=== PATIENT | male | born 1960 | race Caucasian/White ===

== ENCOUNTER → 2018-09-30 | Day surgery (SDC) | payer SELFPAY ==
[~2018-09-30] MED LIST: BUPIVACAINE HCL 0.5% INJ 30 ML VIAL INJ ONE; CEFAZOLIN SOD 1 GM/NS 50ML 50 ML IV ONE; DEXAMETHASONE SOD PHOS INJ 4 MG/ML VIAL ONE; FENTANYL CITRATE/PF 100MCG/2 ML INJ ONE; KETOROLAC TROMETHAMINE 30 MG/ML VIAL ONE; LIDOCAINE HCL 2% LOCAL INJ 5 ML SDV VIAL INJ ONE; MIDAZOLAM HCL 2 MG/2 ML VIAL ONE; MUPIROCIN 2% OINT 22 GM TUBE ONE; ONDANSETRON HCL INJ 2MG/ML 2ML 2 MG/ML VIAL ONE; PROPOFOL IV EMULSION 10 MG/ML 20 ML VIAL ONE; SEVOFLURANE INHAL SOLN 250 ML PEN BTL ONE; SIMVASTATIN20 MG PO
--- OUTSIDE RECORDS SUMMARY | 2018-09-30 05:57 | XMS REPORT | Clinical Summary ---
Author Author [facility] Organization [facility] Address Unknown Phone Unavailable Care Team Providers Care Door Repairer Bus Name Role Phone Asked, No Pcp PCP Unavailable Allergies Not on File Medications Not on file Active Problems Not on file Encounters Care Team Description Date Type Specialty Grey Colbert MD Sprain of left acromioclavicular joint, subsequent encounter (Primary Dx); Arthritis of left shoulder region 02/22/2018 Transcribe Physical Therapy Orders Grey Colbert MD Ganglion, left shoulder (Primary Dx); Sprain of left acromioclavicular joint, subsequent encounter; Primary osteoarthritis, left shoulder 01/26/2018 Transcribe Physical Therapy Orders Grey Colbert MD Ganglion, left shoulder (Primary Dx); Sprain of acromioclavicular joint, left, subsequent encounter; Primary osteoarthritis, left shoulder 12/09/2017 Transcribe Physical Therapy Orders after 09/29/2017 Social History Date Tobacco Use Types Packs/Day Years Used Never Assessed Sex Assigned at Date Recorded Not on file Industry Job Start Date Occupation Not on file Not on file Not on file Travel End Travel History Travel Start No recent travel history available. Last Filed Vital Signs Not on file Plan of Treatment Health Maintenance Due Date Last Done Comments COLONOSCOPY SCREENING 2008 SHINGLES VACCINES (#1) 2008 INFLUENZA VACCINE 10/21/2018 Results Not on fileafter 09/29/2017 Insurance Type Payer Benefit Subscriber ID Effective Phone Address Plan / Dates Group PPO BCBS BCBS OUT xxxxxxxxxxxx 2015-P OF STATE resent Advance Directives Patient has advance care planning documents on file. For more information, santosh e contact: Taras Duran [address] [place] [address]
--- OUTSIDE RECORDS SUMMARY | 2018-09-30 05:57 | XMS REPORT ---
[facility] Address Unknown Phone Unavailable Care Team Providers Care Inspector Experimental Assembly Name Role Phone Unavailable Unavailable Payers Payer Name Policy Type Policy Number Effective Date Expiration Date Problems This patient has no known problems. Allergies, Adverse Reactions, Alerts Allergy Name Allergy Type Status Severity Reaction(s) Onset Date Inactive Date Treating Clinician Comments No Known Allergies DA Active U 2010-06-27 00:00:00 Medications This patient has no known medications.
[2018-09-30 10:24] VITALS: BP 132/94
--- NOTE | 2018-09-30 18:08 | Operative Report ---
DATE OF PROCEDURE: SURGEON: Louis Mulligan MD PREOPERATIVE DIAGNOSES: 1. Right carpal tunnel syndrome. 2. Stenosing tenosynovitis of the right thumb and right index finger. POSTOPERATIVE DIAGNOSES: 1. Right carpal tunnel syndrome. 2. Flexor tenosynovitis, right wrist. 3. Stenosing tenosynovitis of the right thumb and right index finger. PROCEDURES PERFORMED: 1. Right open carpal tunnel release. 2. Flexor tenosynovectomy, right wrist. 3. Tenovaginotomy of the right thumb and right index finger. ANESTHESIA: General. HISTORY: The patient is 58 years old, right hand dominant, who presents with stenosing tenosynovitis of the right thumb and right index finger that is recalcitrant to conservative treatment and EMG-proven right carpal tunnel syndrome. Risks, benefits and alternatives of treatment were discussed with the patient. The patient is prepared to undergo the procedure as outlined. DESCRIPTION OF PROCEDURE: The patient was brought to the operating theater. After the induction of adequate general inhalation anesthesia, the patient was prepped and draped in the supine position. A time out was performed by the entire operating room team. A 2.5 cm incision was marked out in the intrathenar space. The right upper extremity was exsanguinated, and a tourniquet was inflated to a pressure of 250 mmHg. The incision was made through the skin and subcutaneous tissues and all venous tributaries were controlled with bipolar cautery. The incision was deepened through the palmar fascia until the transverse carpal ligament was identified. The ligament was sharply sectioned, taking care to protect and preserve the median nerve underlying it. After the complete width of the ligament had been transected, the distal volar forearm fascia was divided under direct view. Proliferative flexor tenosynovium was noticed to encompass the median nerve and this was radically excised. After performing this maneuver, the nerve was noted to lie adequately decompressed. An oblique incision was marked out over the A1 tila of the right thumb and right index finger. The upper extremity was exsanguinated, and a tourniquet was inflated to a pressure of 250 mmHg. The incision was made through the skin and subcutaneous tissues. All venous tributaries were controlled with bipolar cautery. The incision was deepened through the palmar tissues. The neurovascular bundles on the radial and ulnar sides of the flexor tendon sheath were identified and retracted away from the flexor tendon sheath and preserved. The A1 tila of the affected finger was identified and incised longitudinally, taking care to protect and preserve the flexor tendons within the sheath. After the complete length of the tila had been transected, the tendons were placed in a range of motion. There was noted to be good motion without any locking. The wound was copiously irrigated with bacteriostatic saline, closed with 5-0 nylon in an interrupted horizontal mattress fashion. A Marcaine field block was performed at the operative site. Tourniquet was deflated. All of the fingers pinked up nicely and a sterile bulking conforming bandage was applied to the hand and the wrist. A fiberglass splint was fashioned to maintain the wrist in a modest amount of extension. This was held in place with a loosely wrapped Kyaw wrap. The patient tolerated the procedure well and was brought to the recovery room in satisfactory condition and discharged with a postoperative instruction sheet as well as a followup appointment. MD AURY Arriola/GENEVIEVE /[id number]
== END | disposition home or self-care (01) ==
LOC: OR 05:55
PROVIDERS: ATTEND Plastic Surgery
DX: M65.311 Trigger thumb, right thumb (principal); M65.321 Trigger finger, right index finger; G56.01 Carpal tunnel syndrome, right upper limb; M65.841 Other synovitis and tenosynovitis, right hand; E78.5 Hyperlipidemia, unspecified; T14.8XXA Other injury of unspecified body region, initial encounter; X58.XXXA Exposure to other specified factors, initial encounter
CPT/HCPCS: 25115; 26055 ×2; 93005; J0690; J1100; J1885; J2001; J2250; J2405; J2704; J3010

== ENCOUNTER → 2018-10-28 | Day surgery (SDC) | payer BC ==
[~2018-10-28] MED LIST changes: +BUPIVACAINE HCL 0.5% 10ML MPF VIAL INJ ONE; -BUPIVACAINE HCL 0.5% INJ 30 ML VIAL INJ ONE; -KETOROLAC TROMETHAMINE 30 MG/ML VIAL ONE
--- OUTSIDE RECORDS SUMMARY | 2018-10-28 06:23 | XMS REPORT | Clinical Summary ---
Author Author [facility] Organization [facility] Address Unknown Phone Unavailable Care Team Providers Care Business Process Expert Name Role Phone Asked, No Pcp PCP [...] shoulder 12/09/2017 Transcribe Physical Therapy Orders after 10/27/2017 Social History Date Tobacco Use Types Packs/Day [...] INFLUENZA VACCINE 10/21/2018 Results Not on fileafter 10/27/2017 Insurance Type Payer Benefit Subscriber ID Effective Phone Address Plan / Dates Group PPO BCBS BCBS OUT xxxxxxxxxxxx 2015-P OF STATE resent Advance Directives Patient has advance care planning documents on file. For more information, santosh e contact: Taras Duran [address] [place] [address]
[2018-10-28 09:35] VITALS: BP 131/89
--- NOTE | 2018-10-28 15:11 | Operative Report ---
DATE OF PROCEDURE: 10/28/2018 SURGEON: Louis Mulligan MD PREOPERATIVE DIAGNOSES: 1. Left carpal tunnel syndrome. 2. Mass left index finger proximal phalanx level. POSTOPERATIVE DIAGNOSES: 1. Left carpal tunnel syndrome. 2. Flexor tenosynovitis left wrist. 3. Solid mass 2.2 cm, pending final pathology. PROCEDURES: 1. Left open carpal tunnel release. 2. Flexor tenosynovectomy left wrist. 3. Excision of mass left index finger proximal phalanx. ANESTHESIA: General. HISTORY: The patient is a 58-year-old with EMG-proven left carpal tunnel syndrome. The patient has a mass on the volar aspect of the left index finger, which has been increasing in size. Risks, benefits and alternatives of treatment were discussed with the patient. The patient is prepared to undergo the procedure as outlined. DESCRIPTION OF PROCEDURE: The patient was brought to the operating theater. After the induction of adequate general inhalation anesthesia, the patient was prepped and draped in the supine position. A time out was performed by the entire operating room team. A 2.5 cm incision was marked out in the intrathenar space. The left upper extremity was exsanguinated, and a tourniquet was inflated to a pressure of 250 mmHg. The incision was made through the skin and subcutaneous tissues and all venous tributaries were controlled with bipolar cautery. The incision was deepened through the palmar fascia until the transverse carpal ligament was identified. The ligament was sharply sectioned, taking care to protect and preserve the median nerve underlying it. After the complete width of the ligament had been transected, the distal volar forearm fascia was divided under direct view. Proliferative flexor tenosynovium was noticed to encompass the median nerve and this was radically excised. After performing this maneuver, the nerve was noted to lie adequately decompressed. The wound was copiously irrigated with bacteriostatic saline, closed with 5-0 nylon in an interrupted horizontal mattress fashion. A Marcaine field block was performed at the operative site. Tourniquet was deflated. All of the fingers pinked up nicely and a sterile bulking conforming bandage was applied to the hand and the wrist. A fiberglass splint was fashioned to maintain the wrist in a modest amount of extension. This was held in place with a loosely wrapped Kyaw wrap. The patient tolerated the procedure well and was brought to the recovery room in satisfactory condition and discharged with a postoperative instruction sheet as well as a followup appointment. The patient had an oblique incision marked down over the volar aspect of the index finger proximal phalanx and the incision was made through the skin and subcutaneous tissue. Tributaries were controlled with the bipolar cautery. The mass was located directly over the flexor tendon sheath and after releasing it from the surrounding tissues that appeared to be emanating from the radial digital nerve. The mass was gently teased off the radial digital nerve keeping the majority of the digital nerve intact. The mass was sent for permanent pathologic examination. The wound was irrigated with bacteriostatic saline and closed with a 5-0 nylon in an interrupted horizontal mattress fashion. MD AURY Arriola/GENEVIEVE /[id number]
== END | disposition home or self-care (01) ==
LOC: OR 05:45
PROVIDERS: ATTEND Plastic Surgery
DX: G56.02 Carpal tunnel syndrome, left upper limb (principal); M65.88 Other synovitis and tenosynovitis, other site; D17.39 Benign lipomatous neoplasm of skin and subcutaneous tissue of other sites; E78.5 Hyperlipidemia, unspecified; Z01.810 Encounter for preprocedural cardiovascular examination
CPT/HCPCS: 25115; 26111; 64721; 88304; 93005; J0690; J1100; J2001; J2250; J2405; J2704; J3010

== ENCOUNTER → 2021-12-10 | Day surgery (SDC) | payer MEDICARE, BC ==
[~2021-12-10] MED LIST changes: +ACETAMINOPHEN 1000 MG/100 ML 100 ML IV ONE; +BUPIVACAINE 0.25% 30ML SDV ONE; -BUPIVACAINE HCL 0.5% 10ML MPF VIAL INJ ONE; -CEFAZOLIN SOD 1 GM/NS 50ML 50 ML IV ONE; +CYCLOBENZAPRINE10 MG PO; +DEXAMETHASONE SOD PHOS INJ 4 MG/ML SDV ONE; -DEXAMETHASONE SOD PHOS INJ 4 MG/ML VIAL ONE; -MUPIROCIN 2% OINT 22 GM TUBE ONE; +NEOSTIGMINE 1 MG/ML 10ML VIAL ONE; +OMEGA-31000 MG PO; +OXYCODONE/ACETAMINOPHEN 5-325 1 EACH TABLET ONE; +POVIDONE IODINE 0.05% 0.05 % ML PO ONE; +SIMVASTATIN40 MG PO
[2021-12-10 11:15] VITALS: BP 142/82
== END | disposition home or self-care (01) ==
LOC: MERGE 12-05 10:30 → EDBD 12-05 10:30 → OR 07:10
PROVIDERS: ATTEND Podiatrist Foot & Ankle Surgery
DX: M72.2 Plantar fascial fibromatosis (principal); M77.32 Calcaneal spur, left foot; G47.33 Obstructive sleep apnea (adult) (pediatric); E78.5 Hyperlipidemia, unspecified; E66.9 Obesity, unspecified; F17.200 Nicotine dependence, unspecified, uncomplicated; Z01.810 Encounter for preprocedural cardiovascular examination; Z79.899 Other long term (current) drug therapy
CPT/HCPCS: 28104; 29893; 93005; J0131; J0690; J1100; J2001; J2250; J2405; J2704; J2710; J3010; Q4150; 76000

== ENCOUNTER → 2022-01-07 | Day surgery (SDC) | payer MEDICARE, BC ==
[~2022-01-07] MED LIST changes: -ACETAMINOPHEN 1000 MG/100 ML 100 ML IV ONE; -BUPIVACAINE 0.25% 30ML SDV ONE; +BUPIVACAINE HCL 0.5% 10ML MPF VIAL INJ ONE; -DEXAMETHASONE SOD PHOS INJ 4 MG/ML SDV ONE; +KETOROLAC TROMETHAMINE 30 MG/ML VIAL IV ONE; -LIDOCAINE HCL 2% LOCAL INJ 5 ML SDV VIAL INJ ONE; +NEOMYCIN/POLYMYX/BACITR OINT 0.9 GM PKT ONE; -NEOSTIGMINE 1 MG/ML 10ML VIAL ONE; +ONDANSETRON HCL INJ 2MG/ML 2ML 2 MG/ML VIAL IV ONE; -ONDANSETRON HCL INJ 2MG/ML 2ML 2 MG/ML VIAL ONE; -OXYCODONE/ACETAMINOPHEN 5-325 1 EACH TABLET ONE; -PROPOFOL IV EMULSION 10 MG/ML 20 ML VIAL ONE; -SEVOFLURANE INHAL SOLN 250 ML PEN BTL ONE
[2022-01-07 15:35] VITALS: BP 144/81
== END | disposition home or self-care (01) ==
LOC: OR 11:34
PROVIDERS: ATTEND Podiatrist Foot & Ankle Surgery
DX: M72.2 Plantar fascial fibromatosis (principal); M77.31 Calcaneal spur, right foot; G47.33 Obstructive sleep apnea (adult) (pediatric)
CPT/HCPCS: 28104; 29893; J0690; J1885; J2250; J2405; J3010; Q4150; 76000